=== PATIENT | male | born 1935 | race Caucasian/White ===

== ENCOUNTER 2017-06-15 11:14 | Emergency (ER) | payer MEDICARE, BC, OTHER ==
[2017-06-15] MEDS ORDERED: Ondansetron ODT 4 MG TAB ONE (12:29)
[2017-06-15] MEDS ORDERED: Acetaminophen/Codeine 30-300mg Tablet ONE (12:29)
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
[2017-06-15] MEDS ORDERED: Ibuprofen 200 MG TAB ONE (13:38)
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
== END 2017-06-15 14:39 | disposition home or self-care (01) ==
LOC: BURERS 11:14
DX: S42.032A Displaced fracture of lateral end of left clavicle, initial encounter for closed fracture (principal); E78.5 Hyperlipidemia, unspecified; I10 Essential (primary) hypertension; V43.52XA Car driver injured in collision with other type car in traffic accident, initial encounter
CPT/HCPCS: 70450; 71010; 72125; G0390; Q0162